=== PATIENT | male | born 1995 | race African-American/Black ===

== ENCOUNTER 2017-10-07 15:40 | Emergency (ER) | payer BC, OTHER ==
[2017-10-07 15:52] VITALS: BP 147/87
[2017-10-07] MEDS ORDERED: Ibuprofen TAB* 600 MG PO ONE (16:15)
--- NOTE | 2017-10-07 16:26 | UC ---
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 He felt sitting backwards on the basketball field. Did not loose consciousness and can recall all events. States he was feeling dizzy and had light sensitivity when the nurse was examining him and shined a light in his eyes. History of migraine headaches. Denies nausea, vomiting , numbness or weakness. Could stand up and walk by himself after the incident - History Of Current Complaint Chief Complaint: UCHeadInjury Stated Complaint: HEAD INJURY Time Seen by Provider: 10/07/17 15:57 Hx Obtained From: Patient Onset/Duration: Sudden Onset, Lasting Hours Severity Currently: Severe Severity Initially: Moderate Pain Intensity: 8 Character: Dull Aggravating Factor(s): Other - light Alleviating Factor(s): Nothing Associated Signs And Symptoms: Positive: Negative - Risk Factors SDH Risk Factor: Male - Allergies/Home Medications Allergies/Adverse Reactions: Allergies Allergy/AdvReac Type Severity Reaction Status Date / Time No Known Allergies Allergy Verified 10/07/17 15:52 PMH/Surg Hx/FS Hx/Imm Hx Previously Healthy: Yes Neurological History: Migraine - Surgical History Surgical History: None Surgery Procedure, Year, and Place: denies - Family History Known Family History: Positive: Hypertension, Diabetes - Social History Alcohol Use: Occasionally Substance Use Type: Marijuana Smoking Status (MU): Never Smoked Tobacco Review of Systems Neurological: Headache All Other Systems Reviewed And Are Negative: Yes Physical Exam Triage Information Reviewed: Yes Appearance: Well-Appearing, Well-Nourished, Pain Distress Vital Signs: Initial Vital Signs Temp 98.0 F 10/07/17 15:47 Pulse 90 10/07/17 15:47 Resp 18 10/07/17 15:47 BP 147/87 10/07/17 15:47 Pulse Ox 100 10/07/17 15:47 Vital Signs Reviewed: Yes Eyes: Positive: Conjunctiva Clear ENT: Positive: Hearing grossly normal, Pharynx normal, TMs normal, Uvula midline Neck: Positive: Supple, Nontender, No Lymphadenopathy Respiratory: Positive: Chest non-tender, Lungs clear, Normal breath sounds, No respiratory distress Cardiovascular: Positive: RRR, No Murmur, Pulses Normal, Brisk Capillary Refill Abdomen Description: Positive: Nontender, No Organomegaly, Soft Bowel Sounds: Positive: Present Musculoskeletal: Positive: Strength Intact, ROM Intact, No Edema Neurological: Positive: Alert, Muscle Tone Normal, Other: - CN II-XII intact, sensory intact, gait intact, cerebellar function intact. Head Injury Course/Dx - Course Course Of Treatment: s/p head trauma playing basketball. Patient's neurological exam wnl, patient to monitor symptoms at home, start ibuprofen as needed, f/u with PCP within a week - Differential Dx/Diagnosis Provider Diagnoses: Head concussion. Elevated BP without diagnosis of HTN Discharge - Sign-Out/Discharge Documenting (check all that apply): Patient Departure - Discharge Plan Condition: Good Disposition: HOME Prescriptions: Ibuprofen TAB* [Motrin TAB* 600 MG] 600 mg PO Q6H PRN #30 tab PRN Reason: Pain Patient Education Materials: Ibuprofen (By mouth), Concussion (ED) Forms: *Work Release Referrals: [facility] PHYSICIAN REFERRAL [Outside] No Primary Care Phys,NOPCP [Primary Care Provider] - - Billing Disposition and Condition Condition: GOOD Disposition: Home
== END 2017-10-07 16:27 | disposition home or self-care (01) ==
LOC: UCEAST 15:40
DX: S06.0X0A Concussion without loss of consciousness, initial encounter (principal); W03.XXXA Other fall on same level due to collision with another person, initial encounter; Y93.67 Activity, basketball; Y92.310 Basketball court as the place of occurrence of the external cause; Y99.0 Civilian activity done for income or pay; R03.0 Elevated blood-pressure reading, without diagnosis of hypertension; Z82.49 Family history of ischemic heart disease and other diseases of the circulatory system; Z83.3 Family history of diabetes mellitus
CPT/HCPCS: 99202; A9270-GY; G0463